=== PATIENT | female | born 1995 | race Two or more races ===

== ENCOUNTER 2018-06-17 11:43 | Emergency (ER) | payer MEDICAID, OTHER ==
[~2018-06-17] VITALS: Ht 162.6 cm; Wt 65.8 kg
[2018-06-17 12:17] LABS: Urine Bacteria NONE SEEN /hpf (None Seen); Urine Blood Negative /uL (Negative); Urine Mucus FEW (None Seen); Urine Specific Gravity 1.023 (1.001-1.035); Urine WBC <1 /hpf (0 - 5)
[2018-06-17 12:32] LABS: Basophils # (auto) 0.1 uL; Basophils % (auto) 0.7 % (0.0-2.0); Eosinophils # (auto) 0.3 uL; Hematocrit 37.3 % (36.0-46.0); Hemoglobin 12.7 g/dL (12.2-16.2); Lymphocytes # (auto) 2.4 uL; Lymphocytes % (auto) 33.1 % (10.0-50.0); Mean Corpuscular Hemoglobin 30.3 pg (28.0-32.0); Mean Corpuscular Hgb Conc. 34.1 g/dL (32.0-36.0); Mean Corpuscular Volume 88.8 fL (80.0-100.0); Monocytes # (auto) 0.4 uL; Neutrophils # (auto) 4.1 uL; Neutrophils % (auto) 56.2 % (37.0-80.0); Nucleated Red Blood Cells % 0.1 %; Platelet Count (auto) 233 10^3/uL (140-450); Red Cell Distribution Width 13.4 % (11.8-14.3); White Blood Cell 7.4 10^3/uL (4.4-10.8)
[2018-06-17 13:22] LABS: Albumin 4.1 g/dL (3.4-5.0); BUN/Creatinine Ratio 11.8; Bilirubin, Total 0.6 mg/dL (0.2-1.0); Calcium 8.6 mg/dL (8.5-10.1); Potassium 3.6 mmol/L (3.5-5.1); Total Protein 7.6 g/dL (6.4-8.2)
[2018-06-17 16:07] VITALS: BP 119/66
[2018-06-17] MEDS: KETOROLAC TROMETH 60MG/2ML VIAL IM ONE (16:20)
== END 2018-06-17 16:30 | disposition home or self-care (01) ==
LOC: ER 11:45
DX: N83.201 Unspecified ovarian cyst, right side (principal); Z32.02 Encounter for pregnancy test, result negative
CPT/HCPCS: 36415; 80053; 81001; 81025; 83690; 85025; 96372; 99284; J1885